=== PATIENT | male | born 1965 | race Caucasian/White ===

== ENCOUNTER → 2020-02-26 | Outpatient (CLI) | payer OTHER ==
[~2020-02-26] MED LIST: FAMO-63 PO; RIZA10TA PO
== END | disposition home or self-care (01) ==
LOC: LAB 12:30
PROVIDERS: ATTEND Registered Nurse
DX: Z11.59 Encounter for screening for other viral diseases (principal)
CPT/HCPCS: C9803; U0003

== ENCOUNTER → 2020-02-29 | Day surgery (SDC) | payer OTHER ==
[~2020-02-29] MED LIST changes: +IPRATRPIUM/ALBUTEROL 0.5/2.5MG 3 ML NEBU. NEB PRN; +IV RINGERS SOLUTION,LACTATED 1,000 ML IV SCH; +ONDANSETRON PF 4 MG/2 ML VIAL. IV PRN; +PROPOFOL 10,000 MCG/ML (20ML) VIAL IV ONE
[2020-02-29 11:50] VITALS: BP 115/80
--- NOTE | 2020-03-01 17:06 | PATHOLOGY ---
[facility] Accession Number: [id number] . 01 Material submitted: . PART A: colon - TRANSVERSE COLON POLYP. Modifiers: transverse PART B: hepatic flexure - HEPATIC FLEXURE . 01 Clinical history: . None provided. . 02 Diagnosis: A. Colon biopsies, transverse colon polyp: - Tubular adenoma. . B. Colon biopsies, hepatic flexure polyps: - Tubular adenomas. [facility] 03/01/2020 1540 Local . 02 Comment: There is no high grade dysplasia or evidence of malignancy. (JPM/db; 03/01/2020) . 02 Electronically signed: . Morales Dale MD, Pathologist NPI- [id number] . 01 Gross description: . A. Received in formalin labeled "[place], [place], transverse polyp" is a 0.7 x 0.5 x 0.1 cm aggregate of walker-brown soft tissue fragments. The specimen is submitted entirely in A1. . B. Received in formalin labeled "Lind[place], [place], hepatic flexure x2" is a 0.7 x 0.5 x 0.1 cm aggregate of walker-brown soft tissue fragments. The specimen is submitted entirely in B1. ([facility]; 02/29/2020) [facility] 02/29/2020 1943 Local . 02 Pathologist provided ICD-10: D12.3 . 02 CPT . 452021, [id number] Specimen Comment: A courtesy copy of this report has been sent to [phone], [phone]- Specimen Comment: [id number] Specimen Comment: Report sent to / DR GARCIA Performed at: [address], [place] [id number] MD Dontae Bingham MD Phone: [phone] Performed at: [address] [id number] MD Morales Dale MD Phone: [phone]
== END | disposition home or self-care (01) ==
LOC: SURG 09:16
PROVIDERS: ATTEND Internal Medicine Gastroenterology
DX: Z09 Encounter for follow-up examination after completed treatment for conditions other than malignant neoplasm (principal); D12.3 Benign neoplasm of transverse colon; K64.8 Other hemorrhoids; K57.30 Diverticulosis of large intestine without perforation or abscess without bleeding; K21.9 Gastro-esophageal reflux disease without esophagitis; G47.33 Obstructive sleep apnea (adult) (pediatric); I10 Essential (primary) hypertension; E66.9 Obesity, unspecified; Z86.010 Personal history of colon polyps; Z98.890 Other specified postprocedural states; Z79.899 Other long term (current) drug therapy; Z68.30 Body mass index [BMI] 30.0-30.9, adult; Z88.8 Allergy status to other drugs, medicaments and biological substances
CPT/HCPCS: 45380; 88305; J2704; J7120

== ENCOUNTER 2021-03-02 10:50 | Emergency (ER) | payer OTHER ==
[~2021-03-02] VITALS: Ht 182.9 cm; Wt 101.8 kg
[~2021-03-02 10:50] MED LIST changes: -IPRATRPIUM/ALBUTEROL 0.5/2.5MG 3 ML NEBU. NEB PRN; -IV RINGERS SOLUTION,LACTATED 1,000 ML IV SCH; -ONDANSETRON PF 4 MG/2 ML VIAL. IV PRN; -PROPOFOL 10,000 MCG/ML (20ML) VIAL IV ONE
--- NOTE | 2021-03-02 11:59 | PHYS DOC ---
Past History Past Medical History: No Pertinent History Additional Past Medical Histor: L2,3,4 fracture 1990 Past Surgical History: Tonsillectomy, Other Additional Past Surgical Histo: knee scope, ankle, hernia repair, R shoulder Alcohol Use: Rarely General Adult EDM: Chief Complaint: BACK PAIN OR INJURY HPI: HPI: 55-year-old male presents with low back pain. The patient has been doing a lot of activity lately moving and twisting and lifting things. 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 He had difficulty standing up straight last night. When he woke up this morning, he felt very tight in the low back and had a difficult time getting out of bed. It is still difficult to stand up straight. He has mild tingling in the lateral foot but not as bad as sciatica that he has had in the past. Patient has a history of compression fractures many years ago. He todd s no other complaints at this time. Review of Systems: Review of Systems: Constitutional: Denies fever or chills Eyes: Denies change in visual acuity HENT: Denies nasal congestion or sore throat Respiratory: Denies cough or shortness of breath Cardiovascular: Denies chest pain or edema GI: Denies abdominal pain, nausea, vomiting, bloody stools or diarrhea : Denies dysuria Musculoskeletal: Low back pain Integument: Denies rash Neurologic: Denies headache, focal weakness or sensory changes Endocrine: Denies polyuria or polydipsia Lymphatic: Denies swollen glands Psychiatric: Denies depression or anxiety Allergies: Allergies: Allergies Coded Allergies Type Severity Reaction Last Updated Verified No Known Drug Allergies 02/26/20 No Physical Exam: PE: Constitutional: Well developed, well nourished, no acute distress, non-toxic appearance. [] HENT: Normocephalic, atraumatic, bilateral external ears normal, oropharynx moist, no oral exudates, nose normal. [] Eyes: PERRLA, EOMI, conjunctiva normal, no discharge. [] Neck: Normal range of motion, no tenderness, supple, no stridor. [] Cardiovascular:Heart rate regular rhythm, no murmur [] Lungs & Thorax: Bilateral breath sounds clear to auscultation [] Abdomen: Bowel sounds normal, soft, no tenderness, no masses, no pulsatile masses. [] Skin: Warm, dry, no erythema, no rash. [] Back: Tenderness over the L4 and L5 disc. Paraspinal lumbar muscle spasm [] Extremities: No tenderness, no cyanosis, no clubbing, ROM intact, no edema. [] Neurologic: Alert and oriented X 3, normal motor function, normal sensory function, no focal deficits noted. [] Psychologic: Affect normal, judgement normal, mood normal. [] Current Patient Data: Vital Signs: Vital Signs Date Time Temp Pulse Resp B/P (MAP) Pulse Ox O2 Delivery O2 Flow Rate FiO2 03/02/21 11:00 97.7 82 16 145/83 (103) 97 EKG: EKG: [] Radiology/Procedures: Radiology/Procedures: [] Impressions: EXAM: Lumbar spine, 3 views. HISTORY: Pain. COMPARISON: None. FINDINGS: 3 views of the lumbar spine are obtained. There is a moderate wedge compression fracture of L2. There is no retropulsion of the cortex at this level. No additional fracture is seen. There is mild S-shaped lumbar scoliosis. There is minimal grade 1 anterolisthesis of L5 on S1, measuring 2 mm. There is degenerative endplate remodeling with disc space narrowing and facet arthropathy at the lumbosacral junction. There is also degenerative spurring along the right lateral endplates of L1-L2, L3-L4 and L4-L5. IMPRESSION: 1. Moderate chronic appearing L2 compression fracture. 2. Multilevel degenerative change throughout the lumbar spine and mild S-shaped lumbar scoliosis. Electronically signed by: Edna Ramírez MD (03/02/2021 12:11 PM) [facility] DICTATED AND SIGNED BY: EDNA RAMÍREZ MD DATE: 03/02/21 1209 CC: ANKIT GARCIA DO; ANNABEL MACE DO ~MTH0 0 Heart Score: C/O Chest Pain: N/A Risk Factors: Risk Factors: DM, Current or recent (<one month) smoker, HTN, HLP, family history of CAD, obesity. Risk Scores: Score 0 - 3: 2.5% MACE over next 6 weeks - Discharge Home Score 4 - 6: 20.3% MACE over next 6 weeks - Admit for Clinical Observation Score 7 - 10: 72.7% MACE over next 6 weeks - Early Invasive Strategies Course & Med Decision Making: Course & Med Decision Making Pertinent Labs and Imaging studies reviewed. (See chart for details) The patient's lumbar x-rays are negative for acute findings. I suspect he just sprained his back or irritated disc with reflex spasm. I will treat him with prednisone and Flexeril. He is stable for discharge at this time. [] Dragon Disclaimer: Dragon Disclaimer: This electronic medical record was generated, in whole or in part, using a voice recognition dictation system. Departure Departure: Impression: Primary Impression: Lumbar back sprain Qualified Codes: S33.5XXA - Sprain of ligaments of lumbar spine, initial encounter Disposition: HOME / SELF CARE / HOMELESS Condition: STABLE Referrals: ANKIT GARCIA DO (PCP) Patient Instructions: Low Back Strain with Rehab-[facility] Scripts Prednisone (PREDNISONE) 10 Mg Tablet 50 MG PO DAILY for back pain for 4 Days, #20 TAB Prov: ANNABEL MACE DO 03/02/21 Cyclobenzaprine Hcl (CYCLOBENZAPRINE HCL) 10 Mg Tablet 1 TAB PO TID PRN for MUSCLE SPASMS, #30 TAB Prov: ANNABEL MACE DO 03/02/21 ANNABEL MACE DO Mar 02, 2021 11:59
--- NOTE | 2021-03-02 12:13 | RAD ---
EXAM: Lumbar spine, 3 views. HISTORY: Pain. COMPARISON: None. FINDINGS: 3 views of the lumbar spine are obtained. There is a moderate wedge compression fracture of L2. There is no retropulsion of the cortex at this level. No additional fracture is seen. There is m ild S-shaped lumbar scoliosis. There is minimal grade 1 anterolisthesis of L5 on S1, measuring 2 mm. There is degenerative endplate remodeling with disc space narrowing and facet arthropathy at the lumb osacral junction. There is also degenerative spurring along the right lateral endplates of L1-L2, L3- L4 and L4-L5. IMPRESSION: 1. Moderate chronic appearing L2 compression fracture. 2. Multilevel degenerative change throughout the lumbar spine and mild S-shaped lumbar scoliosis. Electronically signed by: Edna Sunshine MD (03/02/2021 12:11 PM) [facility]
[2021-03-02] MEDS ORDERED: CYCL-331 PO (12:26)
[2021-03-02] MEDS ORDERED: PRED-220 PO (12:26)
[2021-03-02 12:30] VITALS: BP 127/73
== END 2021-03-02 12:38 | disposition home or self-care (01) ==
LOC: ER 10:50
DX: S33.5XXA Sprain of ligaments of lumbar spine, initial encounter (principal); X50.9XXA Other and unspecified overexertion or strenuous movements or postures, initial encounter; Y93.89 Activity, other specified; Y92.89 Other specified places as the place of occurrence of the external cause; Y99.8 Other external cause status
CPT/HCPCS: 72100; 99283